=== PATIENT | female | born 1985 | race Caucasian/White ===

== ENCOUNTER 2023-04-17 11:54 | Emergency (ER) | payer MEDICAID ==
[~2023-04-17] VITALS: Ht 182.9 cm; Wt 123.8 kg
[2023-04-17 12:00] VITALS: BP_SYST 144; PULSE 73; RESP 18; TEMP 98.3; O2SAT 98
== END 2023-04-17 12:54 | disposition home or self-care (01) ==
LOC: SED 11:54
DX: K14.1 Geographic tongue (principal); Z88.6 Allergy status to analgesic agent; Z79.899 Other long term (current) drug therapy
CPT/HCPCS: 99281